=== PATIENT | female | born 1950 ===

== ENCOUNTER 2020-07-03 08:18 | Outpatient (RCR) | payer MEDICARE, OTHER, SELFPAY | END 2020-07-31 11:56 | disposition home or self-care (01) | LOC: HO.WCC 08:18 | PROVIDERS: PCP Registered Nurse; Referring Provider Family Medicine; Visit Provider Surgery | DX: L97.222 Non-pressure chronic ulcer of left calf with fat layer exposed (principal); E03.9 Hypothyroidism, unspecified; Z79.899 Other long term (current) drug therapy | CPT/HCPCS: 11042; 97597; 99212 ==